=== PATIENT | female | born 1985 | race Caucasian/White ===

== ENCOUNTER 2016-10-07 13:33 | Emergency (ER) | payer SELFPAY ==
--- NOTE | 2016-10-07 13:50 | ER Document Report ---
ED Medical Screen (RME) - General Stated Complaint: TOOTHACHE Mode of Arrival: Ambulatory Information source: Patient Notes: Patient presents to the emergency department for dental pain for the past 3 days right upper back tooth. Patient called dentist but is unable to get an appointment for 2 weeks. Reports pain is radiating into her ear.. Patient took to penicillins that she had left over became nauseated after taking them. TRAVEL OUTSIDE OF THE [place] IN LAST 30 DAYS: No - Related Data Allergies/Adverse Reactions: aspirin [Aspirin] Allergy (Verified 05/03/16 10:34) Past Medical History - Past Medical History Cardiac Medical History: Denies: Hx Coronary Artery Disease, Hx Heart Attack Pulmonary Medical History: Reports: Hx Asthma, Hx Bronchitis Neurological Medical History: Denies: Hx Cerebrovascular Accident Endocrine Medical History: Denies: Hx Diabetes Mellitus Type 1 GI Medical History: Reports: Hx Ulcerative Colitis, Hx Colonoscopy, Hx Endoscopy Skin Medical History: Denies Hx Cellulitis, Denies Hx MRSA Psychiatric Medical History: Denies: Hx Anxiety Past Surgical History: Reports: Hx Bowel Surgery, Hx Tonsillectomy - Immunizations Immunizations up to date: Yes Hx Diphtheria, Pertussis, Tetanus Vaccination: Yes - unknown last Physical Exam - Vital signs Vitals: Temp Pulse Resp BP Pulse Ox 98.0 F 92 16 133/83 H 98 10/07/16 13:37 10/07/16 13:37 10/07/16 13:37 10/07/16 13:37 10/07/16 13:37 Course - Vital Signs Vital signs: Temp Pulse Resp BP Pulse Ox 98.0 F 92 16 133/83 H 98 10/07/16 13:37 10/07/16 13:37 10/07/16 13:37 10/07/16 13:37 10/07/16 13:37
--- NOTE | 2016-10-07 15:19 | ER Document Report ---
ED Oral Problem - General Chief Complaint: Toothache Stated Complaint: TOOTHACHE Mode of Arrival: Ambulatory Information source: Patient TRAVEL OUTSIDE OF THE [place] IN LAST 30 DAYS: No - HPI Patient complains to provider of: Swelling of face, Swelling of jaw, Toothache Quality of pain: No pain - Related Data Allergies/Adverse Reactions: aspirin [Aspirin] Allergy (Verified 10/07/16 13:51) Past Medical History - General Information source: Patient - Social History Smoking Status: Never Smoker Chew tobacco use (# tins/day): No Frequency of alcohol use: None Drug Abuse: None Family History: Arthritis, CAD, DM, Hyperlipidemia, Hypertension, Malignancy, Thyroid Disfunction Patient has suicidal ideation: No Patient has homicidal ideation: No - Past Medical History Cardiac Medical History: Denies: Hx Coronary Artery Disease, Hx Heart Attack Pulmonary Medical History: Reports: Hx Asthma, Hx Bronchitis Neurological Medical History: Denies: Hx Cerebrovascular Accident Endocrine Medical History: Denies: Hx Diabetes Mellitus Type 1 Renal/ Medical History: Denies: Hx Peritoneal Dialysis GI Medical History: Reports: Hx Ulcerative Colitis, Hx Colonoscopy, Hx Endoscopy Skin Medical History: Denies Hx Cellulitis, Denies Hx MRSA Psychiatric Medical History: Denies: Hx Anxiety Past Surgical History: Reports: Hx Bowel Surgery, Hx Tonsillectomy - Immunizations Immunizations up to date: Yes Hx Diphtheria, Pertussis, Tetanus Vaccination: Yes - unknown last Review of Systems - Review of Systems Constitutional: No symptoms reported EENT: No symptoms reported Cardiovascular: No symptoms reported Respiratory: No symptoms reported Gastrointestinal: No symptoms reported Genitourinary: No symptoms reported Female Genitourinary: No symptoms reported Musculoskeletal: No symptoms reported Skin: No symptoms reported Hematologic/Lymphatic: No symptoms reported Neurological/Psychological: No symptoms reported Physical Exam - Vital signs Vitals: Temp Pulse Resp BP Pulse Ox 98.0 F 92 16 133/83 H 98 10/07/16 13:37 10/07/16 13:37 10/07/16 13:37 10/07/16 13:37 10/07/16 13:37 Interpretation: Normal - General General appearance: Appears well, Alert - HEENT Head: Normocephalic, Atraumatic Eyes: Normal Pupils: PERRL Teeth diagram: 1 - Severe extensive decay - Respiratory Respiratory status: No respiratory distress Chest status: Nontender Breath sounds: Normal Chest palpation: Normal - Cardiovascular Rhythm: Regular Heart sounds: Normal auscultation Murmur: No - Abdominal Inspection: Normal Distension: No distension Bowel sounds: Normal Tenderness: Nontender Organomegaly: No organomegaly - Back Back: Normal, Nontender - Extremities General upper extremity: Normal inspection, Nontender, Normal color, Normal ROM , Normal temperature General lower extremity: Normal inspection, Nontender, Normal color, Normal ROM , Normal temperature, Normal weight bearing. No: Greg's sign - Neurological Neuro grossly intact: Yes Cognition: Normal Orientation: AAOx4 Stanley Coma Scale Eye Opening: Spontaneous Abelardo Coma Scale Verbal: Oriented Abelardo Coma Scale Motor: Obeys Commands Abelardo Coma Scale Total: 15 Speech: Normal Motor strength normal: LUE, RUE, LLE, RLE Sensory: Normal - Psychological Associated symptoms: Normal affect, Normal mood - Skin Skin Temperature: Warm Skin Moisture: Dry Skin Color: Normal Course - Vital Signs Vital signs: Temp Pulse Resp BP Pulse Ox 98.0 F 92 16 133/83 H 98 10/07/16 13:37 10/07/16 13:37 10/07/16 13:37 10/07/16 13:37 10/07/16 13:37 Discharge - Discharge Clinical Impression: Dental decay Disposition: HOME, SELF-CARE Instructions: Penicillin V K ([facility]), Toothache ([facility]), [facility] Prescriptions: Tramadol HCl [Ultram 50 mg Tablet] 50 mg PO Q6HP PRN #40 tablet PRN Reason: Naproxen Sodium [Naproxen Sodium ER] 500 mg PO Q12 PRN #20 tablet.sa PRN Reason: Penicillin V Potassium [Penicillin Vk 500 mg Tablet] 500 mg PO BID #20 tablet
[2016-10-07 15:42] VITALS: BP 127/77
== END 2016-10-07 15:30 | disposition home or self-care (01) ==
LOC: ER 13:33
DX: K02.9 Dental caries, unspecified (principal); R22.0 Localized swelling, mass and lump, head; J45.909 Unspecified asthma, uncomplicated; Z88.6 Allergy status to analgesic agent
CPT/HCPCS: 99282

== ENCOUNTER 2016-10-22 10:06 | Emergency (ER) | payer SELFPAY ==
[2016-10-22 10:11] VITALS: BP 124/94
--- NOTE | 2016-10-22 11:20 | ER Document Report ---
ED Skin Rash/Insect Bite/Abscs - General Chief Complaint: Abscess Stated Complaint: POSSIBLE SPIDER BITE Mode of Arrival: Ambulatory Information source: Patient TRAVEL OUTSIDE OF THE [place] IN LAST 30 DAYS: No - HPI Patient complains to provider of: Skin rash/lesion, Spider bite - MAYBE, NOT SURE Onset: Other - 3 DAYS Onset/Duration: Sudden Quality of pain: Burning, Sharp Severity: Moderate Skin Character: Abscess Skin Temperature: Warm Quality of rash: Painful, Burning Identify cause: No Exacerbated by: Movement Relieved by: Remaining still Similar symptoms previously: No Recently seen / treated by doctor: No - Related Data Allergies/Adverse Reactions: aspirin [Aspirin] Allergy (Verified 10/22/16 10:13) Past Medical History - General Information source: Patient - Social History Smoking Status: Current Every Day Smoker Cigarette use (# per day): Yes Chew tobacco use (# tins/day): No Frequency of alcohol use: None Drug Abuse: None Lives with: Spouse/Significant other Family History: Arthritis, CAD, DM, Hyperlipidemia, Hypertension, Malignancy, Thyroid Disfunction Patient has suicidal ideation: No Patient has homicidal ideation: No - Past Medical History Cardiac Medical History: Denies: Hx Coronary Artery Disease, Hx Heart Attack Pulmonary Medical History: Reports: Hx Asthma, Hx Bronchitis Neurological Medical History: Denies: Hx Cerebrovascular Accident Endocrine Medical History: Denies: Hx Diabetes Mellitus Type 1 Renal/ Medical History: Denies: Hx Peritoneal Dialysis GI Medical History: Reports: Hx Ulcerative Colitis, Hx Colonoscopy, Hx Endoscopy Skin Medical History: Denies Hx Cellulitis, Denies Hx MRSA Psychiatric Medical History: Denies: Hx Anxiety Past Surgical History: Reports: Hx Bowel Surgery, Hx Tonsillectomy - Immunizations Immunizations up to date: Yes Hx Diphtheria, Pertussis, Tetanus Vaccination: Yes - unknown last Review of Systems - Review of Systems Constitutional: Chills EENT: No symptoms reported Cardiovascular: No symptoms reported Respiratory: No symptoms reported Gastrointestinal: No symptoms reported Genitourinary: No symptoms reported Female Genitourinary: denies: Musculoskeletal: No symptoms reported Skin: See HPI Neurological/Psychological: No symptoms reported Physical Exam - Vital signs Vitals: Temp Pulse Resp BP Pulse Ox 98.0 F 85 20 124/94 H 99 10/22/16 10:10 10/22/16 10:10 10/22/16 10:10 10/22/16 10:10 10/22/16 10:10 Interpretation: Hypertensive - General General appearance: Appears well, Alert In distress: None - HEENT Head: Normocephalic Eyes: Normal Conjunctiva: Normal Ears: Normal Nasal: Normal Mouth/Lips: Normal Mucous membranes: Normal - Respiratory Respiratory status: No respiratory distress - Cardiovascular Rhythm: Regular - Extremities General upper extremity: Normal inspection General lower extremity: No: Normal inspection - SKIN LESION R. THIGH (SEE BELOW ) - Neurological Neuro grossly intact: Yes Cognition: Normal Orientation: AAOx4 - Psychological Associated symptoms: Normal affect, Normal mood - Skin Skin Temperature: Warm Skin Moisture: Dry Skin Color: Normal Skin Turgor: Elastic Skin irregularity: Abscess - SMALL, NOT FLUCTUANT, CENTER W/ SMALL ESCHAR, HAS BEEN DRAINING. Location of irregularity: Other - MEDIAL R. THIGH Character of irregularity: Papular, Erythematous Irregularity with: Tenderness, Warmth Course - Vital Signs Vital signs: Temp Pulse Resp BP Pulse Ox 98.0 F 85 20 124/94 H 99 10/22/16 10:10 10/22/16 10:10 10/22/16 10:10 10/22/16 10:10 10/22/16 10:10 Discharge - Discharge Clinical Impression: Abscess Condition: Stable Disposition: HOME, SELF-CARE Instructions: Abscess ([facility]), Oral Narcotic Medication ([facility]), Trimethoprim- Sulfa ([facility]), Epsom Salt Soaks ([facility]) Additional Instructions: MEDS DIRECTED. KEEP ABSCESS BANDAGED WITH OINTMENT, SOAK IT AND CLEAN IT GENTLY FOUR TIMES A DAY. FOLLOW UP IF NOT IMPROVING IN 48 HOURS. Prescriptions: Hydrocodone/Acetaminophen [[place] 5-325 mg Tablet] 1 tab PO Q4HP PRN #14 tablet PRN Reason: For Pain Sulfamethoxazole/Trimethoprim [Sulfamethoxazole-Tmp Ds Tablet] 2 each PO BID # 30 tablet
== END 2016-10-22 11:32 | disposition home or self-care (01) ==
LOC: ER 10:06
DX: L02.415 Cutaneous abscess of right lower limb (principal); R68.83 Chills (without fever); F17.210 Nicotine dependence, cigarettes, uncomplicated; Z88.6 Allergy status to analgesic agent
CPT/HCPCS: 99282

== ENCOUNTER 2016-11-11 08:50 | Emergency (ER) | payer SELFPAY ==
--- NOTE | 2016-11-11 09:12 | ER Document Report ---
HPI - HPI Patient complains to provider of: lump in throat Onset: Other - 3 days Quality of pain: Throbbing Pain Level: 3 Context: 31 yo female c/o anterior neck lump for 3 days. No recent illness. No sensation of throat closing. No fever. Associated Symptoms: None Exacerbated by: Denies Relieved by: Denies Similar symptoms previously: No Recently seen / treated by doctor: No - ROS ROS below otherwise negative: Yes Systems Reviewed and Negative: Yes All other systems reviewed and negative - REPRODUCTIVE Reproductive: DENIES: : - DERM Skin Color: Normal Past Medical History - General Information source: Patient - Social History Smoking Status: Never Smoker Chew tobacco use (# tins/day): No Frequency of alcohol use: None Drug Abuse: None Lives with: Spouse/Significant other Family History: Arthritis, CAD, DM, Hyperlipidemia, Hypertension, Malignancy, Thyroid Disfunction Patient has suicidal ideation: No Patient has homicidal ideation: No Pulmonary Medical History: Reports: Hx Asthma, Hx Bronchitis Renal/ Medical History: Denies: Hx Peritoneal Dialysis GI Medical History: Reports: Hx Ulcerative Colitis, Hx Colonoscopy, Hx Endoscopy Past Surgical History: Reports: Hx Bowel Surgery, Hx Tonsillectomy - Immunizations Immunizations up to date: Yes Hx Diphtheria, Pertussis, Tetanus Vaccination: Yes - unknown last Vertical Provider Document - CONSTITUTIONAL Agree With Documented VS: Yes Exam Limitations: No Limitations General Appearance: No Apparent Distress - INFECTION CONTROL TRAVEL OUTSIDE OF THE [place] IN LAST 30 DAYS: No - HEENT HEENT: Normocephalic. negative: Pharyngeal Tenderness, Pharyngeal Erythema - no intraoral mass Notes: rubbery dense mass central anterior neck above the thyroid - NECK Neck: Supple - RESPIRATORY Respiratory: Breath Sounds Normal, No Respiratory Distress O2 Sat by Pulse Oximetry: 100 - CARDIOVASCULAR Cardiovascular: Regular Rate, Regular Rhythm - GI/ABDOMEN Gastrointestinal: Abdomen Soft, Abdomen Non-Tender, No Organomegaly - MUSCULOSKELETAL/EXTREMETIES Musculoskeletal/Extremeties: DAVID SARGENT - NEURO Level of Consciousness: Awake, Alert Course - Re-evaluation Re-evalutation: 11/11/16 09:[address] Peña for the IV contrast soft tissue of the neck, he went to look at the patient. - Vital Signs Vital signs: Temp Pulse Resp BP Pulse Ox 97.8 F 91 20 126/86 H 100 11/11/16 08:53 11/11/16 08:53 11/11/16 08:53 11/11/16 08:53 11/11/16 08:53 Discharge - Discharge Clinical Impression: thyroglossal duct cyst-infected Condition: Good Disposition: HOME, SELF-CARE Instructions: Clindamycin ([facility]), Oral Narcotic Medication ([facility]), Sore Throat ( [facility]), Warm Packs ([facility]), ENT Additional Instructions: warm compress to er if increased swelling, trouble swallowing call and schedule appointment with the ENT doctor for monday ENT Address: [address] [place] [address] , [place] [address] Prescriptions: Clindamycin HCl [Cleocin 150 mg Capsule] 300 mg PO QID #60 capsule Oxycodone HCl/Acetaminophen [Percocet 5-325 mg Tablet] 1 - 2 tab PO ASDIR PRN # 15 tablet PRN Reason: Forms: Return to Work
[2016-11-11] MEDS ORDERED: DEXAMETHASONE SOD PHOS INJ 10 MG/1 ML VIAL IV ONE (09:57)
[2016-11-11] MEDS ORDERED: CLINDAMYCIN HCL 150 MG CAPSULE PO ONE (11:36)
[2016-11-11] MEDS ORDERED: ONDANSETRON 4 MG TAB.RAPDIS PO ONE (11:36)
[2016-11-11 12:06] VITALS: BP 135/85
== END 2016-11-11 11:58 | disposition home or self-care (01) ==
LOC: ER 08:50
DX: Q89.2 Congenital malformations of other endocrine glands (principal); J45.909 Unspecified asthma, uncomplicated
CPT/HCPCS: 99283; 96374; 70491; S0119; J1100

== ENCOUNTER 2016-12-23 09:28 | Emergency (ER) | payer SELFPAY ==
--- NOTE | 2016-12-23 11:08 | ER Document Report ---
ED General - General Chief Complaint: Cough Stated Complaint: COUGHING Notes: Patient has been sick for about 3 days. She started with a cough 3 days ago. She's getting up little phlegm. It's mostly a "hacking", dry cough. She's vomited twice, once 2 mornings ago and once last night. She is also had diarrhea since last night. Has some pain in the right upper abdomen. Feels as if she's had a fever, but hasn't taken her temp. Denies any UTI symptoms. Smoker Just finished her menstrual cycle. Came when expected. On no control. PMH: ADHD. Cyst in the anterior neck area that's been drained twice by local ENT and to schedule surgery in the future. TRAVEL OUTSIDE OF THE [place] IN LAST 30 DAYS: No - Related Data Allergies/Adverse Reactions: aspirin [Aspirin] Allergy (Verified 12/23/16 09:33) throat swelling Past Medical History - Social History Smoking Status: Current Some Day Smoker Chew tobacco use (# tins/day): No Frequency of alcohol use: None Drug Abuse: None Family History: Arthritis, CAD, DM, Hyperlipidemia, Hypertension, Malignancy, Thyroid Disfunction Patient has suicidal ideation: No Patient has homicidal ideation: No - Past Medical History Cardiac Medical History: Denies: Hx Coronary Artery Disease, Hx Heart Attack Pulmonary Medical History: Reports: Hx Bronchitis GI Medical History: Reports: Hx Ulcerative Colitis, Hx Colonoscopy, Hx Endoscopy Psychiatric Medical History: Reports: Hx Attention Deficit Hyperactivity Disorder - On Adderall, but hasn't taken it for 3 days because she's felt so ill. Past Surgical History: Reports: Hx Bowel Surgery, Hx Tonsillectomy - Immunizations Immunizations up to date: Yes Hx Diphtheria, Pertussis, Tetanus Vaccination: Yes - unknown last Review of Systems - Review of Systems Notes: REVIEW OF SYSTEMS: CONSTITUTIONAL : Has had a subjective fever, not measured. EENT: Denies eye, ear, nose or mouth or throat pain or other symptoms. CARDIOVASCULAR: Denies chest pain. RESPIRATORY: See history of present illness. GASTROINTESTINAL: See history of present illness. GENITOURINARY: Denies difficulty or painful urinating, urinary frequency, blood in urine. MUSCULOSKELETAL: Denies back or neck pain. Denies joint pain or swelling. SKIN: Denies rash or skin lesions. NEUROLOGICAL: Denies LOC or altered mental status. Denies headache. Denies sensory loss or motor deficits. ALL OTHER SYSTEMS REVIEWED AND NEGATIVE. Physical Exam - Vital signs Vitals: Temp Pulse Resp BP Pulse Ox 98.3 F 99 20 125/85 100 12/23/16 09:34 12/23/16 09:34 12/23/16 09:34 12/23/16 09:34 12/23/16 09:34 Interpretation: Normal - Notes Notes: PHYSICAL EXAMINATION: GENERAL: Well-appearing, in no acute distress. Vital signs essentially normal. HEAD: Atraumatic, normocephalic. EYES: Pupils equal round and reactive to light, extraocular movements intact. ENT: oropharynx clear without exudates. Moist mucous membranes. Small ?Cyst in the mid submandibular region. NECK: Normal range of motion, supple. LUNGS: Breath sounds clear and equal bilaterally. No wheezes heard. HEART: Regular rate and rhythm without murmurs. Heart rate about 100 at bedside by me. ABDOMEN: Soft, nontender. No guarding or rebound. BACK: No tenderness throughout entire back. EXTREMITIES: Normal range of motion without pain. NEUROLOGICAL: Normal speech, normal gait. Normal sensory, motor, and reflex exams. Awake, alert, and oriented x3. Cranial nerves normal. PSYCH: Normal mood, normal affect. SKIN: Warm, dry, no rashes. Course - Vital Signs Vital signs: Temp Pulse Resp BP Pulse Ox 99.4 F 100 14 124/67 99 12/23/16 11:32 12/23/16 11:32 12/23/16 11:32 12/23/16 11:32 12/23/16 11:36 - Diagnostic Test Radiology results interpreted by me: 12/23/16 11:37 Chest x-ray is normal. Discharge - Discharge Clinical Impression: URI (upper respiratory infection) Qualifiers: URI type: unspecified viral URI Qualified Code(s): J06.9 - Acute upper respiratory infection, unspecified; B97.89 - Other viral agents as the cause of diseases classified elsewhere Vomiting Qualifiers: Vomiting type: unspecified Vomiting Intractability: non-intractable Nausea presence: with nausea Qualified Code(s): R11.2 - Nausea with vomiting, unspecified Condition: Stable Additional Instructions: UPPER RESPIRATORY ILLNESS: You have a viral infection of the respiratory passages -- a "cold." This common infection causes nasal congestion, drainage, and often sore throat and cough. It is highly contagious. The disease usually lasts about 10 to 14 days. There is no "cure" for the viral infection -- it must run its course. If there is a complication, such as bacterial infection in the nose, sinuses, middle ear, or bronchial tubes, antibiotics may be required. The antibiotics won't affect the virus. Drink plenty of fluids. A humidifier may help. An expectorant medication or decongestant may make you more comfortable. Use acetaminophen or ibuprofen for fever or aches. See the doctor if fever persists over two days, if there is any significant worsening of your symptoms, or if you simply fail to improve as expected. COUGH-SUPPRESSANT & EXPECTORANT MEDICATION: You are to use a cough medication as needed for relief of symptoms. This medicine is a combination of an expectorant (to make the mucous thinner and more easily "coughed up") and a cough suppressant (to reduce the frequency of coughing). The cough-suppressant medicine is related to narcotics. You may experience mild nausea and sleepiness. Some patients who are very sensitive to narcotics may have stomach pain from this medicine. Taking the medicine with food reduces these side effects. Do not drive or work with machinery until you know how this medicine affects you. The expectorant should have no side effects. Iodine-containing expectorants (such as organidin) should not be taken by persons with active thyroid disease unless approved by your doctor. Call the doctor if you develop shortness of breath, hives, rash, itching, lightheadedness, or severe nausea and vomiting. USE OF ACETAMINOPHEN (Tylenol): Acetaminophen may be taken for pain relief or fever control. It's much safer than aspirin, offering a wider range of "safe" dosages. It is safe during . Some brand names are Tylenol, Panadol, Datril, Anacin 3, Tempra, and Liquiprin. Acetaminophen can be repeated every four hours. The following are maximum recommended dosages: >89 pounds or adults 650 mg to 900 mg Acetaminophen can be repeated every four hours. Maximum dose not to exceed 4000 mg a day. SMOKING: If you smoke, you should stop smoking. The tar and chemicals in cigarette smoke are harmful. Smoking has been shown to cause: emphysema chronic bronchitis lung cancer mouth and throat cancer stomach and pancreas cancer premature aging defects In addition, smoking increases ear and lung infections in children of smokers. Antinausea Medication You have been given a medication to suppress nausea and vomiting. This type of medication can be given as a shot, pill, or suppository. It will usually last for many hours. Pills and shots usually last six to eight hours, suppositories last about 12 hours. For the typical illness, only one or two doses of the medication may be necessary. Mild lightheadedness may occur. This type of medicine can cause drowsiness. Do not drive or operate dangerous machinery while under its influence. Do not mix with alcohol. See your doctor at once if you have muscle spasms or tightness, or uncontrollable motions (particularly of the neck, mouth, or jaw). Persistent vomiting or severe lightheadedness should also be evaluated by the physician. FOLLOW-UP CARE: If you have been referred to a physician for follow-up care, call the physician s office for an appointment as you were instructed or within the next two days. If you experience worsening or a significant change in your symptoms, notify the physician immediately or return to the Emergency Department at any time for re-evaluation. Prescriptions: Hydrocodone/Acetaminophen [[place] 5-325 mg Tablet] 1 tab PO Q4HP PRN #15 tablet PRN Reason: Cough Promethazine HCl [Phenergan 25 mg Tablet] 1 - 2 tab PO Q6H PRN #15 tablet PRN Reason: Forms: Return to Work
[2016-12-23 11:36] VITALS: BP 124/67
== END 2016-12-23 11:52 | disposition home or self-care (01) ==
LOC: ER 09:28
DX: J06.9 Acute upper respiratory infection, unspecified (principal); B97.89 Other viral agents as the cause of diseases classified elsewhere; R05 Cough; R11.10 Vomiting, unspecified; R19.7 Diarrhea, unspecified; R10.11 Right upper quadrant pain; F17.200 Nicotine dependence, unspecified, uncomplicated; Z88.6 Allergy status to analgesic agent; Z87.19 Personal history of other diseases of the digestive system; Z98.890 Other specified postprocedural states
CPT/HCPCS: 71020; 99283

== ENCOUNTER 2016-12-26 12:23 | Emergency (ER) | payer SELFPAY ==
--- NOTE | 2016-12-26 13:19 | ER Document Report ---
HPI - HPI Patient complains to provider of: cough for a week Onset: Last week Onset/Duration: Persistent Pain Level: 3 Context: 31-year-old smoker has had a cough for a week. She's complaining of lower ribs and back pain from coughing so hard. She was seen Monday in the emergency department by Dr. Giron and was given hydrocodone for the cough suppression and Phenergan for nausea. She states she's been unable to eat because when she coughs hard it makes her throw up. No fever. She also complains that she is now losing her voice. She does not take any bronchodilators. Chest x-ray is negative from Monday. Associated Symptoms: Other - see above Exacerbated by: Denies Relieved by: Denies Similar symptoms previously: Yes Recently seen / treated by doctor: Yes - ROS ROS below otherwise negative: Yes Systems Reviewed and Negative: Yes All other systems reviewed and negative - REPRODUCTIVE LMP: 12/18/16 Reproductive: DENIES: : - DERM Skin Color: Normal Past Medical History - General Information source: Patient - Social History Smoking Status: Current Every Day Smoker Frequency of alcohol use: None Drug Abuse: None Lives with: Spouse/Significant other Family History: Arthritis, CAD, DM, Hyperlipidemia, Hypertension, Malignancy, Thyroid Disfunction Patient has suicidal ideation: No Patient has homicidal ideation: No Pulmonary Medical History: Reports: Hx Asthma, Hx Bronchitis Renal/ Medical History: Denies: Hx Peritoneal Dialysis GI Medical History: Reports: Hx Ulcerative Colitis, Hx Colonoscopy, Hx Endoscopy Psychiatric Medical History: Reports: Hx Attention Deficit Hyperactivity Disorder - On Adderall, but hasn't taken it for 3 days because she's felt so ill. Past Surgical History: Reports: Hx Bowel Surgery, Hx Tonsillectomy - Immunizations Immunizations up to date: Yes Hx Diphtheria, Pertussis, Tetanus Vaccination: Yes - unknown last Vertical Provider Document - CONSTITUTIONAL Agree With Documented VS: Yes Exam Limitations: No Limitations General Appearance: No Apparent Distress - INFECTION CONTROL TRAVEL OUTSIDE OF THE [place] IN LAST 30 DAYS: No - HEENT HEENT: Normocephalic, PERRLA, Pharyngeal Erythema. negative: Tympanic Membrane Red - NECK Neck: Supple. negative: Lymphadenopathy-Left, Lymphadenopathy-Right - RESPIRATORY Respiratory: No Respiratory Distress, Wheezing - coarse maximo O2 Sat by Pulse Oximetry: 99 - CARDIOVASCULAR Cardiovascular: Regular Rate, Regular Rhythm - GI/ABDOMEN Gastrointestinal: Abdomen Soft, Abdomen Non-Tender - BACK Back: Normal Inspection - MUSCULOSKELETAL/EXTREMETIES Musculoskeletal/Extremeties: DAVID SARGENT - NEURO Level of Consciousness: Awake, Alert Motor/Sensory: No Motor Deficit, No Sensory Deficit - DERM Integumentary: Warm, Dry, No Rash Course - Re-evaluation Re-evalutation: 12/26/16 14:51 No wheeze after treatments 12/26/16 22:30 - Vital Signs Vital signs: Temp Pulse Resp BP Pulse Ox 98.2 F 87 18 114/82 99 12/26/16 13:02 12/26/16 13:02 12/26/16 13:02 12/26/16 13:02 12/26/16 13:02 Discharge - Discharge Clinical Impression: bronchitis, laryngitis Condition: Good Disposition: HOME, SELF-CARE Instructions: Bronchitis With Bronchospasm (Wheezing) ([facility]), Steroid Medication , Inhaled Bronchodilators ([facility]), Azithromycin ([facility]) Additional Instructions: Plenty of fluids Rest Return to the emergency room if worse Stop smoking Please complete the patient satisfaction survey if you get one, and return it.. If you do not receive a survey, then you can go to the [facility] website, [email or web address] and place your comments about your very good care. Thank you very much. It was a pleasure being your medical provider today. Prescriptions: Albuterol Sulfate [Proair HFA Inhalation Aerosol 8.5 gm MDI] 2 puff IH Q3HP PRN #1 [id number] PRN Reason: Azithromycin [Zithromax] 250 mg PO DAILY #6 tablet Benzonatate [Tessalon Perles 100 mg Capsule] 100 mg PO ASDIR PRN #40 capsule PRN Reason: Prednisone [Deltasone 20 mg Tablet] 40 mg PO DAILY #8 tablet Forms: Return to Work
[2016-12-26] MEDS ORDERED: IPRATROPIUM/ALBUTEROL 0.5-2.5 MG/3 ML AMPUL NEB ONE (13:27)
[2016-12-26] MEDS ORDERED: ALBUTEROL SULFATE 0.083% NEB 2.5 MG/3 ML AMPUL NEB ONE (13:27)
[2016-12-26] MEDS ORDERED: PREDNISONE 20 MG TABLET PO ONE (13:27)
[2016-12-26 15:14] VITALS: BP 116/71
== END 2016-12-26 15:13 | disposition home or self-care (01) ==
LOC: ER 12:23
DX: J40 Bronchitis, not specified as acute or chronic (principal); J04.0 Acute laryngitis; J45.909 Unspecified asthma, uncomplicated; R05 Cough; R07.81 Pleurodynia; M54.5 Low back pain; F17.200 Nicotine dependence, unspecified, uncomplicated
CPT/HCPCS: 94640 ×2; 99283; J7512; J7620